=== PATIENT | male | born 1990 | race Caucasian/White ===

== ENCOUNTER 2016-09-20 16:50 | Emergency (ER) | payer OTHER ==
--- NOTE | 2016-09-20 18:38 | RAD ---
INDICATION: Shoulder pain COMPARISON: None. TECHNIQUE: 4 views of the right shoulder were obtained. FINDINGS: The right humeral head appears to be displaced inferiorly and anteriorly relative to the bony glenoid labrum. There is questionable cortical discontinuity at the inferior margin of the bony glenoid labrum possibly representing a bony Bankart lesion. Remaining visualized bones are intact. IMPRESSION: RIGHT SHOULDER DISLOCATION WITH POSSIBLE BONY BANKART LESION AT THE INFERIOR MARGIN OF THE GLENOID LABRUM. If the patient's symptoms persist, follow-up imaging is recommended.
[2016-09-20] MEDS ORDERED: Ketorolac INJ* 30 MG/ML 1 ML VIAL IV PUSH ONE (19:07)
[2016-09-20] MEDS ORDERED: Morphine INJ* 4 MG/ML 1 ML SYRINGE IV ONE (19:37)
[2016-09-20] MEDS ORDERED: fentaNYL* 50 MCG/ML 2 ML VIAL (100 MCG VIAL) ONE (20:28)
[2016-09-20] MEDS ORDERED: fentaNYL* 50 MCG/ML 2 ML VIAL (100 MCG VIAL) IV SLOW PU ONE (20:32)
--- NOTE | 2016-09-20 20:46 | ED ---
Upper Extremity Pain - HPI Summary HPI Summary: 26M presents with right shoulder pain s/p falling in bathroom and grabbing sink. He has history of dislocation and tried to relocate it himself. He denies any other injury. He denies any numbness or tingling. He is right handed. He did not take anything for pain. He is in extreme pain. He denies any head injury or LOC. - History of Current Complaint Chief Complaint: EDShoulderClavicJeannette Stated Complaint: POSS DISLOCATED SHOULDER Time Seen by Provider: 09/20/16 19:06 - Allergies/Home Medications Allergies/Adverse Reactions: Allergies Allergy/AdvReac Type Severity Reaction Status Date / Time No Known Allergies Allergy Verified 09/20/16 19:39 PMH/Surg Hx/FS Hx/Imm Hx Endocrine/Hematology History: Denies: Hx Anticoagulant Therapy Cardiovascular History: Denies: Hx Hypertension Infectious Disease History: No Infectious Disease History: Denies: Traveled Outside the [place] in Last 30 Days - Family History Known Family History: Negative: Cardiac Disease - Social History Alcohol Use: None Substance Use Type: Reports: None Smoking Status (MU): Former Smoker Review of Systems Negative: Fever Negative: Chest Pain Negative: Shortness Of Breath Positive: Myalgia - right shoulder pain All Other Systems Reviewed And Are Negative: Yes Physical Exam Triage Information Reviewed: Yes Vital Signs On Initial Exam: Initial Vitals Temp Pulse Resp BP Pulse Ox 98.7 F 68 16 134/85 97 09/20/16 16:59 09/20/16 16:59 09/20/16 16:59 09/20/16 16:59 09/20/16 16:59 Vital Signs Reviewed: Yes Appearance: Positive: Well-Appearing Skin: Positive: Warm, Dry Head/Face: Positive: Normal Head/Face Inspection Eyes: Positive: Normal, Conjunctiva Clear Respiratory/Lung Sounds: Positive: Clear to Auscultation, Breath Sounds Present Cardiovascular: Positive: Normal, RRR Musculoskeletal: Positive: Limited @ - shoulder right, Other - deformity to right shoulder, good pulses, good olive knocker strength, capillary refill< 2 secs - [place] Coma Scale Coma Scale Total: 15 Procedures - Joint Reduction Joint Reduction Site: shoulder (R) Conscious Sedation: No Reduction Attempts: 3 Pre-Procedure NV Exam: Yes Post Joint Reduction Film: joint reduced Diagnostics - Vital Signs Vital Signs Temp Pulse Resp BP Pulse Ox 09/20/16 20:36 142/89 09/20/16 20:33 18 09/20/16 20:27 71 98 09/20/16 20:26 149/97 09/20/16 19:40 18 09/20/16 18:35 98.4 F 68 18 138/112 09/20/16 16:59 98.7 F 68 16 134/85 97 - Laboratory Lab Statement: Any lab studies that have been ordered have been reviewed, and results considered in the medical decision making process. Course/Dx - Course Course Of Treatment: 26M presents with right shoulder pain s/p falling in bathroom and grabbing sink. He has history of dislocation and tried to relocate it himself. She denies any other injury. He denies nay numbness or tingling. He is right handed. He did not take anything for pain. attemped extenal rotation without success. dr trevizo said to place over chair and pressure arm down which relocated shoulder. xray shows relocation, neurovascular intact. patient understands and agrees with plan. - Diagnoses Differential Diagnosis/HQI/PQRI: Positive: Fracture (Closed), Sprain, Other - dislocation Provider Diagnoses: Recurrent dislocation, right shoulder Discharge - Discharge Plan Condition: Good Disposition: HOME Patient Education Materials: Shoulder Dislocation (ED) Referrals: Carter Feldman MD [Primary Care Provider] - Valdo Morel MD [Medical Doctor] - Additional Instructions: Follow up with ortho Keep in sling until seen by ortho Return to ED if develop any new or worsening symptoms
--- NOTE | 2016-09-20 21:01 | RAD ---
INDICATION: Reduction of the right dislocated shoulder. COMPARISON: Same day radiograph of the right shoulder acquired at 1802 hours TECHNIQUE: 2 views of the right shoulder were obtained. FINDINGS: There has been interval relocation of the right shoulder. Again seen is bony lucency at the inferior margin of the glenoid as well as a well-circumscribed 4 mm bony density at the inferior margin of the bony glenoid. IMPRESSION: 1. INTERVAL RELOCATION OF THE DISLOCATED RIGHT GLENOHUMERAL JOINT. 2. AGAIN SEEN IS A POTENTIAL BONY BANKART FRACTURE. If the patient's symptoms persist, follow-up imaging is recommended.
[2016-09-20 21:35] VITALS: BP 125/72
== END 2016-09-20 21:36 | disposition home or self-care (01) ==
LOC: ED 16:50
DX: M24.411 Recurrent dislocation, right shoulder (principal)
CPT/HCPCS: 23650; 99283; J1885; J2270; J3010